=== PATIENT | female | born 1970 | race Caucasian/White ===

== ENCOUNTER 2025-10-10 01:57 | Emergency (ER) | payer OTHER, SELFPAY ==
[2025-10-10 02:08] VITALS: BP 156/96
[2025-10-10 05:56] VITALS: BMI 23.5
[2025-10-10 06:02] VITALS: BP 143/94
--- NOTE | 2025-10-10 07:25 | EDRN ---
Yanelis JOSÉ in room w /pt
--- NOTE | 2025-10-10 07:36 | ED.GENMED ---
History of Present Illness
General
Chief Complaint: Throat Problem
Source: patient
Exam Limitations: none
Time Seen by Provider: 10/10/25 07:01
Nursing documentation reviewed up to this point in time: agreed with
History of Present Illness
History of Present Illness:
see MDM
Past History
Past History
ED Past Medical History: Other (sinus problems)
Social History
Tobacco: Non-smoker
Alcohol: None
Review of Systems
Review of Systems
Allergies reviewed?: Yes
All Other Systems: Not applicable
Phy Exam
Physical Exam
Physical Exam:
GENERAL: Alert , in no apparent distress
EYE: pupils equal and reactive
NECK: Supple
ENT: b/l TM s clear, mild pharyngeal erythema, mild hoarseness to her voice but no tonsillar hypertrophy or exudates
CARDIAC: Regular rate and rhythm, no edema
LUNGS: Spastic occasional cough, no obvious wheezing, not tachypneic
ABDOMEN: Soft, without focal tenderness, no r/g, no cvat, normal bowel sounds
NEUROLOGICAL: Alert and oriented, no focal neuro deficits
SKIN: Warm and dry, skin intact.
MUSCULOSKELETAL: No edema, well perfused.
PSYCH: Normal and appropriate interaction.
Course
Orders/Labs/Results
Orders:
Orders
10/10/25 07:33
Albuterol Nebs [Ventolin Nebules] 2.5 mg INH R NOW STA
CR Chest - 2 Views Urgent
Comment:
Reason For Exam: cough
10/10/25 07:48
COVID-19 Antigen Urgent
Source: Nasal Swab
Influenza A+B Rapid Molecular Urgent
PRASHANTH Source: Nasal Swab
Specimen Description:
10/10/25 09:32
EKG- Treatment ONCE
10/10/25 10:10
Prednisone [Deltasone] 50 mg PO NOW STA
Vital Signs
Initial and Last Documented VS:
Initial Vital Signs
Temp Pulse Resp BP Pulse Ox
37.0 C 77 20 156/96 98
10/10/25 02:08 10/10/25 02:08 10/10/25 02:08 10/10/25 02:08 10/10/25 02:08
Last Documented Vital Signs
Temp Pulse Resp BP Pulse Ox
36.7 C 98 16 144/83 97
10/10/25 06:02 10/10/25 10:00 10/10/25 10:00 10/10/25 10:00 10/10/25 10:00
MDM/Problems Addressed
Differential Diagnosis Includes:
see MDM
MDM/Problems Addressed:
Note:
CHIEF COMPLAINT(S)
Difficulty breathing and tightness in the chest following a coughing episode.
HISTORY OF PRESENT ILLNESS
The patient is a 55-year-old female who presents with difficulty breathing following a coughing fit. The patient reports being prone to sinus infections and began experiencing symptoms last week, initially presenting with a headache and sinus
pressure. The patient notes this often occurs with weather changes. There has been no documented fever. went to PCP 2 days ago and began treatment with azithromycin and medrol dose alexander on Saturday for presumptive sinus infection, and reports no
involvement in the chest but continuous throat irritation and post-nasal drip.
last night, pt went to a constitution party and felt that there was dust in the air, which triggered some coughing. at home, the patient experienced a significant coughing episode around 10:00 PM, following she felt some upper airway tightness more in her
throat region. The patient denies any fever with a temperature of 98.3�F recorded recently. The patients voice was noted to be hoarse, which is abnormal for her.
The patient reports having a history of exercise-induced asthma approximately 16 to 20 years ago, for which she was prescribed an inhaler.
no cp, pleuritic pain, sob, vomiting, syncope, cardiac history
did not test for flu and covid
no fever
CHRONIC MEDICAL CONDITIONS SIGNIFICANTLY AFFECTING CARE
History of exercise-induced asthma.
PLAN
- Administer a nebulizer treatment to address upper airway inflammation.
- Order a chest X-ray to evaluate the upper airway and lungs.
- Offer testing for influenza and COVID-19, though the patient currently declines.
- Consider adjusting steroid dosage to better manage respiratory symptoms, in conjunction with the current exacerbation plan.
DIFFERENTIAL DIAGNOSIS
The Differential Diagnosis includes, in no particular order and is not limited to:
1. Sinusitis
2. Upper Respiratory Infection
3. Exercise-Induced Asthma
4. Allergic Rhinitis
5. Acute Bronchitis
6. Influenza
7. COVID-19
8. Pneumonia
9. Chronic Obstructive Pulmonary Disease (COPD)
10. Gastroesophageal Reflux Disease (GERD)
55-year-old with a few days of sinus congestion and ear pressure, already started antibiotics from her family doctor along with a Medrol Dosepak for which she finished 2 days Mucinex. Tonight she got a cough and felt tightness in her throat and
hoarseness and irritation. She is not short of breath but does feel the need to cough when she breathes. She has no wheezing but she had does have a spastic cough, no hypoxia flu and COVID were negative. It seems as if this is probably viral but
she can continue her antibiotics. I gave her albuterol inhaler after the nebulizer treatment gave her moderate to complete relief of that feeling of difficulty breathing or spastic cough. I also am changing her Medrol Dosepak over to prednisone,
50 mg here and then 40 mg once a day for 2 days and then 20 mg once a day for 2 days.
*Pulse Oximetry
SaO2: 97
Oxygen Mode of Delivery: Room air
Patient hypoxic: no (98)
*Critical Care Note
Total Time (30-74mins, 75-104mins- exclusive of procedures): Not Applicable
ED Attending Note
-
Portions of this chart may have been created with voice recognition software.� Occasional wrong word or��sound alike� substitutions may have occurred due to the inherent limitations of voice recognition software.
Discharge Plan
Departure
Patient Disposition: Home (Routine Discharge)
Date of Disposition: 10/10/25
Time of Disposition: 10:10
Patient with high blood pressure during this ER visit?: No
Condition: Fair
Covid-19: Negative COVID-19
Discharge Problem:
Acute upper respiratory infection
Instructions: Upper respiratory infection in adults (DC)
Prescriptions:
New
prednisone 20 mg tablet
See Rx Instructions .ROUTE .COMPLEX Qty: 8 0RF
Rx Instructions:
40 mg PO ONCE DAY 1, DAY 2, DAY 3, THEN 20 MG ORALLY ONCE DAY 4 AND DAY 5
albuterol sulfate [Ventolin HFA] 90 mcg/actuation HFA aerosol inhaler
2 puff inhalation QID PRN (Reason: shortness of breath or wheezing) Qty: 6.7 0RF
Referrals:
Vy Moat PA-C [Family Provider, General]
Activity Restrictions/Additional Instructions:
YOU LIKELY HAVE A VIRUS THAT IS CAUSING YOUR SYMPTOMS BUT YOU CAN CONTINUE YOUR ANTIBIOTICS FOR YOUR SINUS ISSUES AND THIS SHOULD ALSO HELP BRONCHITIS
YUOR XRAY WAS CLEAR
YOUR FLU AND COVID WERE NEGATIVE
USE INHALER 2 PUFFS EVERY 6 HOURS FOR YOUR COUGH/SHORTNESS OF BREATH
STOP THE MEDROL DOSE ALEXANDER AND INSTEAD TAKE PREDNISONE ONCE A DAY FOR 5 DAYS. DO 40 MG SATURDAY, SATURDAY, AND THEN 20 MG saturday and
DRINK FLUIDS, REST
RETURN FO RANY CONCERNS.
Interventions
Interventions:
*General Assessment Last Done: 10/10/25 08:00
*Neglect/Abuse Screening Last Done: 10/10/25 08:00
*ED COVID-19 Vaccine History Last Done: 10/10/25 08:00
*ED Influenza Vaccine History Last Done: 10/10/25 08:00
[facility] Risk Assessment Tool Last Done: 10/10/25 05:56
*Risk Screen - Suicide (C-SSRS) Last Done: 10/10/25 08:00
*Nursing Disposition Last Done: 10/10/25 10:30
ED-EENT Assessment Last Done: 10/10/25 08:00
ED- Pulmonary Assessment Last Done: 10/10/25 09:30
Discharge Date and Time
Discharge Date/Time: 10/10/25 10:30
Print Language: PALESTINIAN
--- NOTE | 2025-10-10 07:59 | EDRN ---
Swabs sent to lab. Albuterol neb on hold until results of swabs per Yanelis JOSÉ at this time.
[2025-10-10 08:00] VITALS: BP 135/71
[2025-10-10 08:53] LABS: COVID-19 Antigen Negative (Negative)
[2025-10-10] MEDS: VENTOLIN NEBULES 2.5 MG INH (09:20)
[2025-10-10 09:30] VITALS: BP 149/83
[2025-10-10 10:00] VITALS: BP 144/83
[2025-10-10] MEDS: DELTASONE 50 MG PO (10:23)
== END 2025-10-10 10:30 | disposition home or self-care (01) ==
LOC: EMR 01:57
PROVIDERS: Physician Assistant; EMERGENCY PHYSICIAN Emergency Medicine; FAMILY PHYSICIAN Physician Assistant
DX: J06.9 Acute upper respiratory infection, unspecified (principal)
CPT/HCPCS: 99284; 94640; 71046; 87502; 87811